=== PATIENT | female | born 1990 | race Two or more races ===

== ENCOUNTER 2025-03-01 18:43 | Emergency (ER) | payer MEDICAID, SELFPAY ==
[2025-03-01 19:14] VITALS: BP 117/75; PULSE 78; RESP 18; TEMP 37.2; O2SAT 99
--- NOTE | 2025-03-01 19:27 | PD.EDRME ---
Rapid Medical Screening Exam RME Arrival date/time: 03/01/25 18:43 34F with no significant PMH presents to ED with several days of L flank pain and possible hematuria, but no dsyuria. There is also N/V. Chief Complaint: Abdominal Pain Vital signs: Vital Signs Temperature 98.9 F 03/01/25 19:14 Pulse Rate 78 03/01/25 19:14 Respiratory Rate 18 03/01/25 19:14 Blood Pressure 117/75 03/01/25 19:14 Pulse Oximetry (%) 99 03/01/25 19:14 Oxygen Delivery Method Room Air 03/01/25 19:14
[2025-03-01 19:47] LABS: Basophils # (Auto) 0.1 Thou/mm3 (0.0-0.2); Basophils % (Auto) 1 % (0-2.5); Eosinophils # (Auto) 0.1 Thou/mm3 (0.0-0.5); Eosinophils % (Auto) 1 % (0-10); Hematocrit 37.2 % (36.0-46.0); Hemoglobin 12.9 g/dL (12.0-16.0); Immature Granulocytes % (Auto) 0 % (0-0); Immature Granulocytes Auto 0.02 Thou/mm3 (0.00-0.00); Lymphocytes # (Auto) 2.4 Thou/mm3 (1.0-4.8); Lymphocytes % (Auto) 29 % (10-50); Mean Corpuscular HGB Conc 34.7 g/dl (31.0-37.0); Mean Corpuscular Hemoglobin 30.1 pg (25.0-35.0); Mean Corpuscular Volume 87 fL (80-100); Monocytes # (Auto) 0.7 Thou/mm3 (0.0-0.8); Monocytes % (Auto) 9 % (0-12); Neutrophils # (Auto) 4.9 Thou/mm3 (1.8-7.7); Neutrophils % (Auto) 60 % (37-80); Nucleated Red Blood Cell % 0 /100 WBC (0); Platelet Count 290 Thou/mm3 (140-440); RDW Standard Deviation 40.1 fL (36.4-46.3); Red Blood Count 4.28 Miln/mm3 (4.00-5.20); White Blood Count 8.1 Thou/mm3 (3.6-11.0)
[2025-03-01] MEDS: NAPROXEN 250 MG TABLET 500 MG PO (19:59)
[2025-03-01] MEDS: ONDANSETRON ODT 4 MG TABRAP PO (20:00)
[2025-03-01 20:05] LABS: Alanine Aminotransferase 19 U/L (10-49); Albumin, Serum 4.5 gm/dL (3.5-5.0); Albumin/Globulin Ratio 1.4 (1.2-2.2); Alkaline Phosphatase 69 U/L (46-116); Anion Gap 9 (7-16); Aspartate Amino Transferase 21 U/L (0-34); BUN/Creatinine Ratio 9 Ratio (12-20); Bilirubin,Total 0.3 mg/dL (0.3-1.2); Blood Urea Nitrogen 7 mg/dL (9-23); Calcium 9.2 mg/dL (8.3-10.6); Calcium (Corrected) 9.2 mg/dL (8.5-10.1); Carbon Dioxide 26.6 mMol/L (20.0-31.0); Chloride 104 mMol/L (98-107); Creatinine (Component) 0.8 mg/dL (0.6-1.3); Globulin 3.2 gm/dL (2.3-3.5); Glucose 93 mg/dL (74-106); Lipase 52 U/L (12-53); Osmolality,Calculated 277 (275-295); Potassium 3.2 mMol/L (3.4-5.1); Sodium 140 mMol/L (136-145); Total Protein 7.7 gm/dL (5.7-8.2); eGFR > 60 See Note
[2025-03-01 20:56] LABS: Collection Type, Urine Clean Catch
[2025-03-01 21:06] LABS: Bilirubin,Urine Negative (Negative); Blood,Urine Negative (Negative); Clarity,Urine Clear (Clear/Hazy); Color,Urine Colorless (Lt Yel-Yel); Culture Indicated,Urine Not Indicated; Glucose, Urine Negative (Negative); Ketones,Urine Negative (Negative); Leukocyte Esterase,Urine Negative (Negative); Nitrite,Urine Negative (Negative); PH,Urine 6.5 (5.0-7.0); Protein,Urine Negative (Neg - Trace); RBC,Urine 1 /hpf (0-3); Specific Gravity,Urine 1.003 (1.001-1.035); Squamous Epithelial Cell,Urine 1 /hpf (0-5); Urobilinogen,Urine Negative mg/dL (0.0-1.0); WBC,Urine 1 /hpf (0-5)
[2025-03-01 21:11] LABS: HCG Qualitative,Urine Negative
--- NOTE | 2025-03-01 23:48 | PC.NURSE ---
CALLED PATIENT IN THE LOBBY AND OUTSIDE, NO ANSWER RECEIVED.
--- NOTE | 2025-03-02 00:11 | PC.NURSE ---
Pt did not answer when name was called and was not found outside.
== END 2025-03-02 00:59 | disposition left against medical advice (07) ==
PROVIDERS: Physician Assistant; Emergency Provider Emergency Medicine
DX: R10.9 Unspecified abdominal pain (principal); Z53.29 Procedure and treatment not carried out because of patient's decision for other reasons
CPT/HCPCS: 36415; 80053; 81001; 81025; 83690; 85025; 99281; Q0162; A9270

== ENCOUNTER 2025-03-25 13:17 | Emergency (ER) | payer MEDICAID, SELFPAY ==
[2025-03-25 13:25] VITALS: BP 116/70; PULSE 68; RESP 17; TEMP 37.2; O2SAT 100
--- NOTE | 2025-03-25 13:28 | PD.EDVAGBL ---
ED OB Contraction Preg RMI/HPI General Chief complaint: Vaginal Bleeding Stated complaint: PREG 5WKS, VAGINAL BLEEDING, SENT BY PCP Time Seen by Provider: 03/25/25 13:26 Source: patient Arrival date/time: 03/25/25 13:17 35-year-old female with no known medical history presents to the emergency room with a chief complaint of vaginal bleeding x 2 days. Patient is currently 5 weeks . She is a G4, P2 and was sent over by her primary care provider. Mode of arrival: ambulatory Limitations: no limitations Related Data Home Medications ?Medication ?Instructions ?Recorded ?Confirmed norgestimate 0.25 mg-ethinyl 1 tab PO QDAY 04/24/24 04/24/24 estradiol 0.035 mg tablet Previous Rx's ?Medication ?Instructions ?Recorded acetaminophen 500 mg capsule 500 mg PO Q6H PRN fever or pain 04/25/24 #20 caps ibuprofen 800 mg tablet 800 mg PO Q8H PRN pain #20 tabs 04/25/24 metronidazole 500 mg tablet 500 mg PO Q12H #14 tabs 04/25/24 Allergies Allergy/AdvReac Type Severity Reaction Status Date / Time No Known Allergies Allergy Verified 03/25/25 13:19 Review of Systems Review of Systems Systems Reviewed: All systems reviewed, normal except as documented Constitutional Constitutional: Reports system reviewed and no additional complaints, except as documented, Denies fatigue, Denies fever(s), Denies headache(s) and Denies weakness Eyes Eyes: Reports system reviewed and no additional complaints, except as documented, Denies blurry vision and Denies change in vision ENT Ears, Nose, Mouth, and Throat: Reports system reviewed and no additional complaints, except as documented, Denies otalgia, Denies headache(s), Denies nasal congestion, Denies throat swelling and Denies vertigo Cardiovascular Cardiovascular: Reports system reviewed and no additional complaints, except as documented, Denies chest pain, Denies dyspnea and Denies dyspnea on exertion Respiratory Respiratory: Reports system reviewed and no additional complaints, except as documented, Denies chest congestion, Denies cough, Denies dyspnea, Denies dyspnea on exertion and Denies wheezing Gastrointestinal Gastrointestinal: Reports system reviewed and no additional complaints, except as documented, Denies abdominal pain, Denies cramping, Denies nausea and Denies vomiting Genitourinary Genitourinary: Reports system reviewed and no additional complaints, except as documented, Reports abnormal vaginal bleeding and Reports pelvic pain Musculoskeletal Musculoskeletal: Reports system reviewed and no additional complaints, except as documented and Denies back pain Integumentary/Breasts Skin/Breast: Reports system reviewed and no additional complaints, except as documented and Denies wounds Neurologic Neurologic: Reports system reviewed and no additional complaints, except as documented, Denies confusion, Denies headache(s), Denies lack of coordination, Denies vertigo and Denies weakness Psychiatric Psychiatric: Reports system reviewed and no additional complaints, except as documented, Denies anxiety, Denies confusion, Denies depression, Denies paranoia, Denies suicidal ideation and Denies tactile hallucinations Endocrine Endocrine: Reports system reviewed and no additional complaints, except as documented and Denies fatigue Hematologic/Lymphatic Hematologic/Lymphatic: Reports system reviewed and no additional complaints, except as documented and Denies lymphadenopathy Allergic/Immunologic Allergic/Immunologic: Reports system reviewed and no additional complaints, except as documented, Denies throat swelling, Denies urticaria and Denies wheezing Past Medical History Past Medical History NEUROLOGIC: Negative Neurological Disorders or Seizures CARDIAC: Negative Cardiac Disorders or Congestive Heart Failure RESPIRATORY: Negative Chronic Obstructive Pulmonary Disease (COPD) or Asthma GASTROINTESTINAL: Negative Gastrointestinal Disorders or Hepatitis GENITOURINARY: Negative Genitourinary Disorders or Renal Disease REPRODUCTIVE: Positive Previous Pregnancies (2) MUSCULOSKELETAL: Negative Musculoskeletal Disorders ENDOCRINE: Negative Endocrine Disorders, Diabetes Mellitus Type 1 or Diabetes Mellitus Type 2 HEMATOLOGIC: Positive Blood Disorders and Anemia; Negative Sickle Cell Disease PSYCHO/SOCIAL: Positive Anxiety (no meds) OTHER HISTORY: Negative Hospitalization, Autoimmune Disease, Shingles, Blood Transfusions, Blood Transfusion Reaction, Anesthesia Reactions or Cancer Family History FAMILY HISTORY: Positive Family Cardiac Disorders, Family Cancer (Prostate) and Family Surgery; Negative Family Psychiatric Problems, Family Respiratory Disorders, Family Gastrointestinal Problems or Family Anesthesia Reaction Social History SMOKING STATUS: Never smoker SUBSTANCE USE: does not use ED Exam General Limitations: Present no limitations General appearance: Present alert and in no apparent distress Head Head exam: Present atraumatic Eye Eye exam: Present normal appearance, PERRL and EOMI ENT ENT exam: Present normal exam, normal oropharynx and mucous membranes moist Neck Neck exam: Present normal inspection, full ROM and trachea midline Chest Chest inspection: Present normal inspection and symmetric chest wall rise Respiratory Respiratory exam: Present normal lung sounds bilaterally Cardiovascular Cardiovascular exam: Present regular rate, normal rhythm and normal heart sounds Abdominal Exam Abdominal exam: Present soft, tenderness and normal bowel sounds Abdominal tenderness: Present suprapubic and mild Extremities Exam Extremities exam: Present normal inspection and full ROM Back Exam Back exam: Present normal inspection and full ROM Neurological Exam Neurological exam: Present alert, oriented X3 and CN II-XII intact Psychiatric Psychiatric exam: Present normal affect and normal mood Skin Skin exam: Present warm, dry, intact and normal color Course Quality Measures none Orders Category Date Time Status US OB <= 14 weeks fetus Stat Exams 03/25/25 13:31 Completed ABO/RH Type Stat Lab 03/25/25 13:35 Completed Beta HCG,Quantitative Stat Lab 03/25/25 13:35 Completed CBC Stat Lab 03/25/25 13:35 Completed CMP [Comprehensive Metabolic Panel] Stat Lab 03/25/25 13:35 Completed UA [Urinalysis] Stat Lab 03/25/25 13:45 Completed Vital Signs Vital signs: Vital Signs Temperature 98.9 F 03/25/25 13:25 Pulse Rate 68 03/25/25 13:25 Respiratory Rate 17 03/25/25 13:25 Blood Pressure 116/70 03/25/25 13:25 Pulse Oximetry (%) 100 03/25/25 13:25 Oxygen Delivery Method Room Air 03/25/25 13:25 O2 saturation 100% within normal limits Vaginal Bleeding MDM Narrative MDM Narrative: 35-year-old female with no known medical history presents to the emergency room with a chief complaint of vaginal bleeding x 2 days. Patient is currently 5 weeks . She is a G4, P2 and was sent over by her primary care provider. Patient is currently hemodynamically stable Physical examination does not show any tenderness to her abdomen with palpation. The patient is having some vaginal bleeding and states it is a little more than just spotting. Ultrasound was completed and at this time no intrauterine gestation or uterine mass was found. The patient's hCG levels are at 4. I spoke to the patient and told her this is significantly low. I spoke to the patient that she can return in 3 days if she is unable to see her FINAL TESTER for repeat blood work and ultrasound. Patient was discharged and educated to follow-up with primary care provider in the next 24 to 48 hours and return to the emergency room for any evidence of worsening signs or symptoms Patient data External records reviewed:: [facility] previous records Clinical information provided by:: patient Social determinants that could affect healthcare access:: none Patient has the following chronic illnesses:: No chronic illness How is presenting disease/condition affected by chronic disease/condition?: no chronic disease Evaluation data The following diagnostics were reviewed and interpreted by me:: lab results and radiology exam(s) Lab and/or radiology exams considered but not ordered:: Labs and radiology exams considered and ordered Interpretation Summary: OB ultrasound-Findings: Uterus 8.9 cm endometrial stripe 0.8 cm No uterine mass or intrauterine gestation Right ovary 1.6 cm arterial flow Left ovary 4.0 cm arterial flow IMPRESSION: No uterine mass or intrauterine gestation Medications / Prescriptions Medications or Prescriptions considered but not ordered:: No medication Medication administrations:: No medication given Consultations Consultation(s) initiated? (list below): No Diagnosis Vaginal Bleeding Differential Diagnosis: threatened , dysfunctional uterine bleeding, incomplete , ectopic without intrauterine and vaginal bleeding Most likely diagnosis given after review of the tests above:: Vaginal bleeding Admission Indicated Admission indicated?: not indicated Admission Request Was there a request for admission?: No Disposition Plan Disposition Plan: Discharge Discharge Attestation Discharge Attestation: The patient and all family members were given an opportunity to ask questions and understood the discharge instructions. Discharge instructions specifically effects, indications for sooner follow up or return to the emergency department, and the expected course of current diagnosis. Patient condition: Stable Discharge Plan Plan Patient Disposition: HOME (Self Care) Discharge Disposition comment: Stable Prescriptions/Referrals Prescriptions/Med Rec: No Action norgestimate-ethinyl estradiol 0.25-35 mg-mcg Tablet 1 tab PO QDAY acetaminophen 500 mg capsule 500 mg PO Q6H PRN (Reason: fever or pain) Qty: 20 0RF ibuprofen 800 mg tablet 800 mg PO Q8H PRN (Reason: pain) Qty: 20 0RF metronidazole 500 mg tablet 500 mg PO Q12H Qty: 14 0RF Referrals: Cristopher Emanuel MD [Primary Care Provider] - In 1 week Problem List Clinical Impression: Vaginal bleeding Patient/Caregiver Discharge Instructions Education Materials: ED Dysfunctional Uterine Bleeding Additional Instructions: Please follow-up with your FINAL TESTER in the next 24 to 48 hours Ultrasound was completed and at this time an intrauterine gestation was unable to be visualized. Your hCG levels are also at 4. This level was very low and can mean you are having a spontaneous . You can return in 3 days for repeat ultrasound and blood work in which we will compare these results. For any evidence of worsening signs or symptoms return to the emergency room immediately Print Language: Bolivian Stand Alone Forms: Maryse Award Info., Patient Portal Info Letter PA/CREW LEADER/CONTROL ROOM OPERATOR Supervising Physician PA/CREW LEADER/CONTROL ROOM OPERATOR Supervising Physician: Dr. Salvador
--- NOTE | 2025-03-25 13:31 | XR_ITS ---
Examination: Complete OB ultrasound, less than 14 weeks, transabdominal Date and time of exam: March 25, 2025 1424 hours INDICATIONS: Onset vaginal bleeding today Technique: Obstetrical ultrasound images less than 14 weeks performed via transabdominal imaging Findings: Uterus 8.9 cm endometrial stripe 0.8 cm No uterine mass or intrauterine gestation Right ovary 1.6 cm arterial flow Left ovary 4.0 cm arterial flow IMPRESSION: No uterine mass or intrauterine gestation
[2025-03-25 13:47] LABS: Basophils # (Auto) 0.0 Thou/mm3 (0.0-0.2); Basophils % (Auto) 1 % (0-2.5); Eosinophils # (Auto) 0.1 Thou/mm3 (0.0-0.5); Eosinophils % (Auto) 1 % (0-10); Hematocrit 37.1 % (36.0-46.0); Hemoglobin 12.7 g/dL (12.0-16.0); Immature Granulocytes Auto 0.02 Thou/mm3 (0.00-0.00); Lymphocytes # (Auto) 2.2 Thou/mm3 (1.0-4.8); Lymphocytes % (Auto) 24 % (10-50); Mean Corpuscular HGB Conc 34.2 g/dl (31.0-37.0); Mean Corpuscular Hemoglobin 30.2 pg (25.0-35.0); Mean Corpuscular Volume 88 fL (80-100); Monocytes # (Auto) 0.6 Thou/mm3 (0.0-0.8); Monocytes % (Auto) 7 % (0-12); Neutrophils # (Auto) 6.0 Thou/mm3 (1.8-7.7); Neutrophils % (Auto) 67 % (37-80); Nucleated Red Blood Cell # 0.00 Thou/mm3 (0.00-0.00); Nucleated Red Blood Cell % 0 /100 WBC (0); Platelet Count 300 Thou/mm3 (140-440); RDW Standard Deviation 41.4 fL (36.4-46.3); Red Blood Count 4.20 Miln/mm3 (4.00-5.20); White Blood Count 8.9 Thou/mm3 (3.6-11.0)
[2025-03-25 14:02] LABS: Collection Type, Urine Clean Catch
[2025-03-25 14:10] LABS: Alanine Aminotransferase 17 U/L (10-49); Albumin, Serum 4.2 gm/dL (3.5-5.0); Albumin/Globulin Ratio 1.4 (1.2-2.2); Alkaline Phosphatase 67 U/L (46-116); Anion Gap 9 (7-16); Aspartate Amino Transferase 21 U/L (0-34); BUN/Creatinine Ratio 10 Ratio (12-20); Beta HCG,Quantitative 4 mIU/mL (<5.0); Bilirubin,Total 0.3 mg/dL (0.3-1.2); Blood Urea Nitrogen 9 mg/dL (9-23); Calcium 8.7 mg/dL (8.3-10.6); Calcium (Corrected) 8.7 mg/dL (8.5-10.1); Carbon Dioxide 24.2 mMol/L (20.0-31.0); Chloride 106 mMol/L (98-107); Creatinine (Component) 0.9 mg/dL (0.6-1.3); Globulin 3.1 gm/dL (2.3-3.5); Glucose 115 mg/dL (74-106); Osmolality,Calculated 277 (275-295); Potassium 3.6 mMol/L (3.4-5.1); Sodium 139 mMol/L (136-145); Total Protein 7.3 gm/dL (5.7-8.2); eGFR > 60 See Note
[2025-03-25 14:16] LABS: Bilirubin,Urine Negative (Negative); Blood,Urine 3+ (Negative); Clarity,Urine Clear (Clear/Hazy); Color,Urine Lt-Yellow (Lt Yel-Yel); Glucose, Urine Negative (Negative); Ketones,Urine Negative (Negative); Leukocyte Esterase,Urine Positive (Negative); Nitrite,Urine Negative (Negative); PH,Urine 7.5 (5.0-7.0); Protein,Urine Negative (Neg - Trace); RBC,Urine 6 /hpf (0-3); Specific Gravity,Urine 1.015 (1.001-1.035); Squamous Epithelial Cell,Urine 16 /hpf (0-5); Urobilinogen,Urine Negative mg/dL (0.0-1.0); WBC,Urine 2 /hpf (0-5)
== END 2025-03-25 15:37 | disposition home or self-care (01) ==
PROVIDERS: Emergency Provider Nurse Practitioner Family; PCP Family Medicine
DX: O20.9 Hemorrhage in early pregnancy, unspecified (principal); Z3A.01 Less than 8 weeks gestation of pregnancy
CPT/HCPCS: 36415; 76801; 80053; 81001; 84702; 85025; 86900; 86901; 99283

== ENCOUNTER 2025-05-29 21:09 | Emergency (ER) | payer MEDICAID, SELFPAY ==
[2025-05-29 21:11] VITALS: BMI 23.6
[2025-05-29 21:44] VITALS: BP 125/79; PULSE 69; RESP 18; TEMP 36.9; O2SAT 98
--- NOTE | 2025-05-29 22:11 | PD.EDVAGBL ---
ED OB Contraction Preg RMI/HPI General Chief complaint: Vaginal Bleeding Stated complaint: 5 wks preg vag bleeding and cramping Time Seen by Provider: 05/29/25 22:05 Arrival date/time: 05/29/25 21:09 35-year-old female A2 approximately 5 weeks gestation reports with complaints of vaginal bleeding and pelvic cramping that began today. Patient denies any urinary urgency or frequency fever or chills lower back pain nausea or vomiting or abdominal trauma. Patient states that she has not taken any medications for the bleeding Limitations: no limitations Related Data Home Medications ?Medication ?Instructions ?Recorded ?Confirmed norgestimate 0.25 mg-ethinyl 1 tab PO QDAY 04/24/24 04/24/24 estradiol 0.035 mg tablet Previous Rx's ?Medication ?Instructions ?Recorded acetaminophen 500 mg capsule 500 mg PO Q6H PRN fever or pain 04/25/24 #20 caps ibuprofen 800 mg tablet 800 mg PO Q8H PRN pain #20 tabs 04/25/24 metronidazole 500 mg tablet 500 mg PO Q12H #14 tabs 04/25/24 Allergies Allergy/AdvReac Type Severity Reaction Status Date / Time No Known Allergies Allergy Verified 05/29/25 21:15 Review of Systems Constitutional Constitutional: Denies chills and Denies fever(s) Cardiovascular Cardiovascular: Denies chest pain, Denies dyspnea and Denies syncope Respiratory Respiratory: Denies cough and Denies dyspnea Gastrointestinal Gastrointestinal: Denies nausea and Denies vomiting Genitourinary Genitourinary: Reports abnormal vaginal bleeding and Reports pelvic pain Musculoskeletal Musculoskeletal: Denies back pain and Denies myalgias Integumentary/Breasts Skin/Breast: Denies rash and Denies skin pain Neurologic Neurologic: Denies convulsions and Denies syncope Hematologic/Lymphatic Hematologic/Lymphatic: Denies easy bleeding and Denies easy bruising ED Exam General Limitations: Present no limitations General appearance: Present alert and in no apparent distress Chest Chest inspection: Present normal inspection and symmetric chest wall rise Respiratory Respiratory exam: Present normal lung sounds bilaterally Cardiovascular Cardiovascular exam: Present regular rate, normal rhythm and normal heart sounds Abdominal Exam Abdominal exam: Present soft and normal bowel sounds External exam: Present normal external exam Speculum exam: Present vaginal bleeding; Absent erythema Bimanual exam: Present normal bimanual exam; Absent cervical motion tenderness, adnexal tenderness or uterine enlargement Extremities Exam Extremities exam: Present normal inspection and full ROM Back Exam Back exam: Present normal inspection and full ROM Neurological Exam Neurological exam: Present alert, oriented X3 and CN II-XII intact Psychiatric Psychiatric exam: Present normal affect and normal mood Skin Skin exam: Present warm, dry, intact and normal color Course Course Course Narrative: [facility] [address] [place] [address] [facility] Signed Patient: AGNES FARLEY Record#: [id number] Birthdate: 1990 Age/Sex: 35 / F Location: [facility] Attending Dr: Ordering Physician: Arnoldo Figueredo PA-C Date of Service: 05/29/25 Procedure(s): US OB <= 14 weeks fetus Accession Number(s): [id number] cc: Cristopher Emanuel MD; Moe Luna MD; Arnoldo Figueredo PA-C~ Examination: Complete OB ultrasound, less than 14 weeks, transabdominal Date and time of exam: May 29, 2025 10:17 PM Indications: Vaginal bleeding today Technique: Obstetrical ultrasound images less than 14 weeks performed via transabdominal imaging Findings: Uterus 10.2 cm intrauterine gestational sac 1.2 cm corresponds to 6 week 0 day gestational age No pole No cardiac activity Right ovary 3.0 cm arterial flow Left ovary 3.6 cm arterial flow Impression: Empty intrauterine gestational sac corresponding to 6 weeks 0 day gestational age Recommend transvaginal pelvic sonography follow-up to assess for viability Dictated By: Moe Luna MD Signed By: <Electronically signed by Moe Luna MD in OV> 05/29/252255 DD/ 54 TD/TT: 05/29/252254 Sheet Music Salesperson: ESSENCE Quality Measures none Orders Category Date Time Status Pelvic Exam X1 Care 05/29/25 22:10 Active US OB <= 14 weeks fetus Stat Exams 05/29/25 22:10 Completed Beta HCG,Quantitative Stat Lab 05/29/25 22:24 Completed Chlamydia/GC/TV - PCR Stat Lab 05/29/25 Ordered HCG,Qualitative Serum Stat Lab 05/29/25 22:24 Completed UA, C/S IF [Urinalysis, C/S if Indicated] Stat Lab 05/29/25 23:17 Received Vital Signs Vital signs: Vital Signs Temperature 98.5 F 05/29/25 21:44 Pulse Rate 69 05/29/25 21:44 Respiratory Rate 18 05/29/25 21:44 Blood Pressure 125/79 05/29/25 21:44 Pulse Oximetry (%) 98 05/29/25 21:44 Oxygen Delivery Method Room Air 05/29/25 21:44 Vaginal Bleeding Patient data External records reviewed:: None Clinical information provided by:: patient Social determinants that could affect healthcare access:: none Patient has the following chronic illnesses:: none How is presenting disease/condition affected by chronic disease/condition?: no chronic disease Evaluation data The following diagnostics were reviewed and interpreted by me:: lab results and radiology exam(s) Lab and/or radiology exams considered but not ordered:: none Interpretation Summary: gestational sac measures approximately 6 weeks of gestation but no visual fetus and sac noted Medications / Prescriptions Medications or Prescriptions considered but not ordered:: None Medication administrations:: None Consultations Consultation(s) initiated? (list below): No Diagnosis Vaginal Bleeding Differential Diagnosis: missed , threatened , dysfunctional uterine bleeding and vaginal bleeding Most likely diagnosis given after review of the tests above:: Threatened Admission Indicated Admission indicated?: not indicated Admission Request Was there a request for admission?: No Disposition Plan Disposition Plan: Discharge Discharge Attestation Discharge Attestation: The patient and all family members were given an opportunity to ask questions and understood the discharge instructions. Discharge instructions specifically effects, indications for sooner follow up or return to the emergency department, and the expected course of current diagnosis. Patient condition: Stable Discharge Plan Plan Patient Disposition: HOME (Self Care) Prescriptions/Referrals Prescriptions/Med Rec: No Action norgestimate-ethinyl estradiol 0.25-35 mg-mcg Tablet 1 tab PO QDAY acetaminophen 500 mg capsule 500 mg PO Q6H PRN (Reason: fever or pain) Qty: 20 0RF ibuprofen 800 mg tablet 800 mg PO Q8H PRN (Reason: pain) Qty: 20 0RF metronidazole 500 mg tablet 500 mg PO Q12H Qty: 14 0RF Referrals: Cristopher Emanuel MD [Primary Care Provider, Family Practice] - In 1 week Problem List Clinical Impression: , spontaneous threatened Patient/Caregiver Discharge Instructions Discharge Activity: activity as tolerated Education Materials: ED Possible Miscarriage ... Additional Instructions: Follow-up with your BARREL STRAIGHTENER in 48 hours to have blood labs repeated or you may return to the emergency department to have your blood work repeated get plenty of rest and notify your BARREL STRAIGHTENER in the morning Print Language: Welsh Stand Alone Forms: Maryse Award Info., Patient Portal Info Letter
[2025-05-29 23:18] LABS: HCG,Qualitative Serum Positive
[2025-05-30 00:13] LABS: Beta HCG,Quantitative 33441 mIU/mL (<5.0)
[2025-05-30 00:19] LABS: Collection Type, Urine Clean Catch
[2025-05-30 00:31] LABS: Bacteria,Urine Rare; Bilirubin,Urine Negative (Negative); Blood,Urine 3+ (Negative); Clarity,Urine Clear (Clear/Hazy); Color,Urine Colorless (Lt Yel-Yel); Culture Indicated,Urine Not Indicated; Glucose, Urine Negative (Negative); Ketones,Urine Negative (Negative); Leukocyte Esterase,Urine Negative (Negative); Nitrite,Urine Negative (Negative); PH,Urine 6.5 (5.0-7.0); Protein,Urine Negative (Neg - Trace); RBC,Urine < 1 /hpf (0-3); Specific Gravity,Urine 1.004 (1.001-1.035); Squamous Epithelial Cell,Urine 1 /hpf (0-5); Urobilinogen,Urine Negative mg/dL (0.0-1.0); WBC,Urine < 1 /hpf (0-5)
[2025-05-30 11:30] LABS: Chlamydia trachomatis PCR Negative (Not Detect); Neisseria Gonorrhoeae DNA PCR Negative (Not Detect); Trichomonas Negative (Negative)
== END 2025-05-30 00:37 | disposition home or self-care (01) ==
PROVIDERS: Physician Assistant; Emergency Provider Emergency Medicine; PCP Family Medicine
DX: O20.0 Threatened abortion (principal); Z3A.01 Less than 8 weeks gestation of pregnancy
CPT/HCPCS: 36415; 76801; 81001; 84702; 84703; 87491; 87591; 87661; 99283

== ENCOUNTER 2025-06-19 14:46 | Emergency (ER) | payer MEDICAID, SELFPAY ==
[2025-06-19 15:10] VITALS: BP 115/80; PULSE 61; RESP 18; TEMP 36.8; O2SAT 99
--- NOTE | 2025-06-19 15:16 | XR_ITS ---
EXAMINATION: Transvaginal pelvic sonography TECHNIQUE: Grayscale transvaginal sonographic images pelvis Date and time: June 19, 2025, 1542 hours INDICATIONS: Vaginal bleeding and pelvic cramping today FINDINGS: Uterus 10.0 cm, CRL 1.6 cm corresponds to 8 weeks 0 days gestational age Cardiac motion 178 bpm Right ovary 2.8 cm arterial flow Left ovary 2.6 cm arterial flow IMPRESSION: Viable intrauterine gestation 8 weeks 0 days
--- NOTE | 2025-06-19 15:16 | PD.EDRME ---
Rapid Medical Screening Exam E Arrival date/time: 06/19/25 14:46 35-year-old female presents to the Emergency Department for complaints of vaginal bleeding patient reports being approximately 8 weeks Chief Complaint: Vaginal Bleeding Vital signs: Vital Signs Temperature 98.3 F 06/19/25 15:10 Pulse Rate 61 06/19/25 15:10 Respiratory Rate 18 06/19/25 15:10 Blood Pressure 115/80 06/19/25 15:10 Pulse Oximetry (%) 99 06/19/25 15:10 Oxygen Delivery Method Room Air 06/19/25 15:10
[2025-06-19 15:51] LABS: Alanine Aminotransferase 19 U/L (10-49); Albumin, Serum 4.6 gm/dL (3.5-5.0); Albumin/Globulin Ratio 1.3 (1.2-2.2); Alkaline Phosphatase 70 U/L (46-116); Anion Gap 12 (7-16); Aspartate Amino Transferase 23 U/L (0-34); BUN/Creatinine Ratio 10 Ratio (12-20); Bilirubin,Total 0.3 mg/dL (0.3-1.2); Blood Urea Nitrogen 6 mg/dL (9-23); Calcium 9.9 mg/dL (8.3-10.6); Calcium (Corrected) 9.9 mg/dL (8.5-10.1); Carbon Dioxide 24.1 mMol/L (20.0-31.0); Chloride 100 mMol/L (98-107); Creatinine (Component) 0.6 mg/dL (0.6-1.3); Globulin 3.6 gm/dL (2.3-3.5); Glucose 89 mg/dL (74-106); Osmolality,Calculated 268 (275-295); Potassium 3.7 mMol/L (3.4-5.1); Sodium 136 mMol/L (136-145); Total Protein 8.2 gm/dL (5.7-8.2); eGFR > 60 See Note
[2025-06-19 17:08] LABS: Basophils # (Auto) 0.1 Thou/mm3 (0.0-0.2); Basophils % (Auto) 1 % (0-2.5); Eosinophils # (Auto) 0.1 Thou/mm3 (0.0-0.5); Eosinophils % (Auto) 1 % (0-10); Hematocrit 37.5 % (36.0-46.0); Hemoglobin 12.7 g/dL (12.0-16.0); Immature Granulocytes Auto 0.07 Thou/mm3 (0.00-0.00); Lymphocytes # (Auto) 2.2 Thou/mm3 (1.0-4.8); Lymphocytes % (Auto) 20 % (10-50); Mean Corpuscular HGB Conc 33.9 g/dl (31.0-37.0); Mean Corpuscular Hemoglobin 30.1 pg (25.0-35.0); Mean Corpuscular Volume 89 fL (80-100); Monocytes # (Auto) 0.6 Thou/mm3 (0.0-0.8); Monocytes % (Auto) 5 % (0-12); Neutrophils # (Auto) 7.8 Thou/mm3 (1.8-7.7); Neutrophils % (Auto) 73 % (37-80); Nucleated Red Blood Cell # 0.00 Thou/mm3 (0.00-0.00); Nucleated Red Blood Cell % 0 /100 WBC (0); Platelet Count 383 Thou/mm3 (140-440); RDW Standard Deviation 42.3 fL (36.4-46.3); Red Blood Count 4.22 Miln/mm3 (4.00-5.20); White Blood Count 10.7 Thou/mm3 (3.6-11.0)
--- NOTE | 2025-06-19 17:37 | EDNOTE_ITS ---
ED OB Contraction Preg RMI/HPI General Chief complaint: Vaginal Bleeding Stated complaint: 2MOS BLEEDING Time Seen by Provider: 06/19/25 15:40 Arrival date/time: 06/19/25 14:46 35-year-old female presents to the Emergency Department for complaints of vaginal bleeding patient reports being approximately 8 weeks Limitations: no limitations RME / HPI RME / HPI Narrative: 06/19/25 14:46 35-year-old female presents to the Emergency Department for complaints of vaginal bleeding patient reports being approximately 8 weeks Related Data Home Medications ?Medication ?Instructions ?Recorded ?Confirmed norgestimate 0.25 mg-ethinyl 1 tab PO QDAY 04/24/24 estradiol 0.035 mg tablet Previous Rx's ?Medication ?Instructions ?Recorded acetaminophen 500 mg capsule 500 mg PO Q6H PRN fever o r pain 04/25/24 #20 caps ibuprofen 800 mg tablet 800 mg PO Q8H PRN pain #20 t abs 04/25/24 metronidazole 500 mg tablet 500 mg PO Q12H #14 tabs Allergies Allergy/AdvReac Type Severity Reaction Status Date / Time No Known Allergies Allergy Verified 06/19/25 14:49 Review of Systems Review of Systems Systems Reviewed: All systems reviewed, normal except as documented Constitutional Constitutional: Reports system reviewed and no additional complaints, except as documented, Denies fever(s) and Denies headache(s) Eyes Eyes: Reports system reviewed and no additional complaints, except as documented and Denies blurry vision ENT Ears, Nose, Mouth, and Throat: Reports system reviewed and no additional complaints, except as documented, Denies headache(s), Denies nasal congestion and Denies nasal discharge Cardiovascular Cardiovascular: Reports system reviewed and no additional complaints, except as documented, Denies chest pain and Denies dyspnea Respiratory Respiratory: Reports system reviewed and no additional complaints, except as documented, Denies chest congestion, Denies cough and Denies dyspnea Gastrointestinal Gastrointestinal: Reports system reviewed and no additional complaints, except as documented and Denies abdominal pain Genitourinary Genitourinary: Reports system reviewed and no additional complaints, except as documented and Reports abnormal vaginal bleeding Integumentary/Breasts Skin/Breast: Reports system reviewed and no additional complaints, except as documented and Denies rash Neurologic Neurologic: Reports system reviewed and no additional complaints, except as documented, Reports as per HPI and Denies headache(s) Past Medical History Past Medical History NEUROLOGIC: Negative Neurological Disorders or Seizures CARDIAC: Negative Cardiac Disorders or Congestive Heart Failure RESPIRATORY: Negative Chronic Obstructive Pulmonary Disease (COPD) or Asthma GASTROINTESTINAL: Negative Gastrointestinal Disorders or Hepatitis GENITOURINARY: Negative Genitourinary Disorders or Renal Disease REPRODUCTIVE: Positive Previous Pregnancies (2) MUSCULOSKELETAL: Negative Musculoskeletal Disorders ENDOCRINE: Negative Endocrine Disorders, Diabetes Mellitus Type 1 or Diabetes Mellitus Type 2 HEMATOLOGIC: Positive Blood Disorders and Anemia; Negative Sickle Cell Disease PSYCHO/SOCIAL: Positive Anxiety (no meds) OTHER HISTORY: Negative Hospitalization, Autoimmune Disease, Shingles, Blood Transfusions, Blood Transfusion Reaction, Anesthesia Reactions or Cancer Family History FAMILY HISTORY: Positive Family Cardiac Disorders, Family Cancer (Prostate) and Family Surgery; Negative Family Psychiatric Problems, Family Respiratory Disorders, Family Gastrointestinal Problems or Family Anesthesia Reaction Social History SMOKING STATUS: Never smoker SUBSTANCE USE: does not use ED Exam General Limitations: Present no limitations General appearance: Present alert and in no apparent distress Head Head exam: Present atraumatic Eye Eye exam: Present normal appearance, PERRL and EOMI ENT ENT exam: Present normal exam, normal oropharynx and mucous membranes moist Neck Neck exam: Present normal inspection, full ROM and trachea midline Chest Chest inspection: Present normal inspection and symmetric chest wall rise Respiratory Respiratory exam: Present normal lung sounds bilaterally; Absent respiratory distress Cardiovascular Cardiovascular exam: Present regular rate, normal rhythm and normal heart sounds Abdominal Exam Abdominal exam: Present soft and normal bowel sounds Extremities Exam Extremities exam: Present normal inspection and full ROM; Absent tenderness Back Exam Back exam: Present normal inspection and full ROM Neurological Exam Neurological exam: Present alert, oriented X3 and CN II-XII intact Psychiatric Psychiatric exam: Present normal affect and normal mood Skin Skin exam: Present warm, dry, intact and normal color Course Quality Measures none Orders Category Date Time Status US OB transvaginal Stat Exams 06/19/25 15:16 Completed ABO/RH Type Stat Lab 06/19/25 15:21 Completed Beta HCG,Quantitative Stat Lab 06/19/25 15:21 Completed CBC Stat Lab 06/19/25 15:21 Completed Comprehensive Metabolic Panel Stat Lab 06/19/25 15:21 Completed Vital Signs Vital signs: Vital Signs Temperature 98.3 F 06/19/25 15:10 Pulse Rate 61 06/19/25 15:10 Respiratory Rate 18 06/19/25 15:10 Blood Pressure 115/80 06/19/25 15:10 Pulse Oximetry (%) 99 06/19/25 15:10 Oxygen Delivery Method Room Air 06/19/25 15:10 To saturation 99% room air within normal limits Vaginal Bleeding MDM Narrative MDM Narrative: 35-year-old female presents to the Emergency Department for complaints of vaginal bleeding patient reports being approximately 8 weeks On exam patient well-appearing patient does not appear look toxic distress Lab work and imaging obtained lab work and imaging consistent with viable at this time I did explain to the patient I cannot determine while having the future but at this time patient appears to have viable For increased bleeding or emergent concerns patient is instructed return for reevaluation Patient data External records reviewed:: [facility] previous records Clinical information provided by:: patient Social determinants that could affect healthcare access:: none Patient has the following chronic illnesses:: None How is presenting disease/condition affected by chronic disease/condition?: no chronic disease Evaluation data The following diagnostics were reviewed and interpreted by me:: lab results and radiology exam(s) Lab and/or radiology exams considered but not ordered:: Labs radiology obtained Interpretation Summary: Reviewed by me Medications / Prescriptions Medications or Prescriptions considered but not ordered:: No meds Medication administrations:: No meds Consultations Consultation(s) initiated? (list below): No Diagnosis Vaginal Bleeding Differential Diagnosis: missed and threatened Most likely diagnosis given after review of the tests above:: Threatened Admission Indicated Admission indicated?: not indicated Admission Request Was there a request for admission?: No Disposition Plan Disposition Plan: Discharge Discharge Attestation Discharge Attestation: The patient and all family members were given an opportunity to ask questions and understood the discharge instructions. Discharge instructions specifically effects, indications for sooner follow up or return to the emergency department, and the expected course of current diagnosis. Patient condition: Stable Discharge Plan Plan Patient Disposition: HOME (Self Care) Discharge Disposition comment: Stable Prescriptions/Referrals Prescriptions/Med Rec: No Action norgestimate-ethinyl estradiol 0.25-35 mg-mcg Tablet 1 tab PO QDAY acetaminophen 500 mg capsule 500 mg PO Q6H PRN (Reason: fever or pain) Qty: 20 0RF ibuprofen 800 mg tablet 800 mg PO Q8H PRN (Reason: pain) Qty: 20 0RF metronidazole 500 mg tablet 500 mg PO Q12H Qty: 14 0RF Referrals: Cristopher Emanuel MD [Primary Care Provider, [facility]] - 06/20/25 Problem List Clinical Impression: Vaginal bleeding during Patient/Caregiver Discharge Instructions Education Materials: Bleeding During Early Additional Instructions: Please follow up with your primary care doctor in the next 24-48hrs for any worsening symptoms return here immediately Print Language: Georgian Stand Alone Forms: Maryse Award Info., Work/School Release, Patient Portal Info Letter PA/ELECTRICAL MAINTENANCE TECHNICIAN Supervising Physician PA/ELECTRICAL MAINTENANCE TECHNICIAN Supervising Physician: dr rojas
== END 2025-06-19 17:57 | disposition home or self-care (01) ==
PROVIDERS: Nurse Practitioner Primary Care; Emergency Provider Emergency Medicine; PCP Family Medicine
DX: O20.0 Threatened abortion (principal); Z3A.08 8 weeks gestation of pregnancy
CPT/HCPCS: 36415; 76817; 80053; 84702; 85025; 86900; 86901; 99283

== ENCOUNTER 2025-08-03 18:56 | Emergency (ER) | payer MEDICAID, SELFPAY ==
[2025-08-03 18:57] VITALS: BMI 23.8
[2025-08-03 19:04] VITALS: BP 126/84; PULSE 92; RESP 18; TEMP 36.8; O2SAT 99
--- NOTE | 2025-08-03 19:15 | EDNOTE_ITS ---
ED OB Contraction Preg RMI/HPI General Chief complaint: Vaginal Bleeding Stated complaint: 14 WK PREG/VAG BLEED Time Seen by Provider: 08/03/25 19:01 Arrival date/time: 08/03/25 18:56 35-year-old female patient came in for evaluation regarding vaginal bleeding. According to the patient's been having vaginal bleeding for 1 week was seen by [facility] and was started on antibiotics the bleeding stopped last Tuesday only to come back the next day today patient is worried because she is passing blood clots denies any pelvic pain denies any dizziness denies any fever denies any other complaints. Patient is 5 para 2 2 about 14 weeks Related Data Home Medications ?Medication ?Instructions ?Recorded ?Confirmed norgestimate 0.25 mg-ethinyl 1 tab PO QDAY 04/24/24 estradiol 0.035 mg tablet Previous Rx's ?Medication ?Instructions ?Recorded acetaminophen 500 mg capsule 500 mg PO Q6H PRN fever o r pain 04/25/24 #20 caps ibuprofen 800 mg tablet 800 mg PO Q8H PRN pain #20 t abs 04/25/24 metronidazole 500 mg tablet 500 mg PO Q12H #14 tabs Allergies Allergy/AdvReac Type Severity Reaction Status Date / Time No Known Allergies Allergy Verified 06/19/25 14:49 Review of Systems Review of Systems Narrative Review of Systems: Review of system reviewed and within normal limits except mentioned in HPI ED Exam Narrative Physical exam: VITAL SIGNS: Reviewed. GENERAL APPEARANCE: Alert and interactive, follows commands, no acute distress, HEAD AND FACE: Non-traumatic. ENT: PERRL, pink conjunctivitis, eyelid no trauma, Mucous membrane moist. NECK: Supple, nontender, no nuchal rigidity. CHEST: No tenderness, no crepitus, no paradoxical movement, no retractions. LUNGS: Clear, well ventilated, symmetric, no rales, no wheezing, no ronchi, no stridor, good breath sounds bilaterally. HEART: Regular rate, regular rhythm, no murmur, no gallops. ABDOMEN: Soft, positive bowel sounds, nondistended, no guarding, nontender, no rebound, no masses, RECTAL: Deferred. GENITAL: Deferred. NEUROLOGICAL: Gross motor function intact sensory function intact, Appropriate for age. MUSCULOSKELETAL: low back nontender, full range of motion. EXTREMITIES: Nontender, full range of motion. SKIN: Color pink, dry, no rash, no lacerations, no abrasions, no contusions. LYMPHATICS: Deferred. Course Quality Measures none Orders Category Date Time Status US OB <= 14 weeks fetus Stat Exams 08/03/25 19:15 Completed ABO/RH Type Stat Lab 08/03/25 19:30 Completed Basic Metabolic Panel Stat Lab 08/03/25 19:30 Completed Beta HCG,Quantitative Stat Lab 08/03/25 19:30 Completed CBC Stat Lab 08/03/25 19:30 Completed Urinalysis Stat Lab 08/03/25 20:16 Completed Vital Signs Vital signs: Vital Signs Temperature 98.3 F 08/03/25 19:04 Pulse Rate 92 08/03/25 19:04 Respiratory Rate 18 08/03/25 19:04 Blood Pressure 126/84 08/03/25 19:04 Pulse Oximetry (%) 99 08/03/25 19:04 Oxygen Delivery Method Room Air 08/03/25 19:04 Vaginal Bleeding MDM Narrative MDM Narrative: 08/03/25 18:56 35-year-old female patient came in for evaluation regarding vaginal bleeding. According to the patient's been having vaginal bleeding for 1 week was seen by [facility] and was started on antibiotics the bleeding stopped last Tuesday only to come back the next day today patient is worried because she is passing blood clots denies any pelvic pain denies any dizziness denies any fever denies any other complaints. Patient is 5 para 2 2 about 14 weeks Patient's workup today all came back unremarkable including urinalysis which is probably contaminated. Ultrasound g of showed single live intrauterine gestation about 13 weeks old. No abnormality noted results discussed with the patient. I gave her the results of her ultrasound. She is stable for discharge home Patient data External records reviewed:: None Clinical information provided by:: patient Social determinants that could affect healthcare access:: none Patient has the following chronic illnesses:: None How is presenting disease/condition affected by chronic disease/condition?: exacerbated by Evaluation data The following diagnostics were reviewed and interpreted by me:: lab results and radiology exam(s) Lab and/or radiology exams considered but not ordered:: None Interpretation Summary: None Medications / Prescriptions Medications or Prescriptions considered but not ordered:: None Medication administrations:: None Consultations Consultation(s) initiated? (list below): No Diagnosis Vaginal Bleeding Differential Diagnosis: threatened and vaginal bleeding Most likely diagnosis given after review of the tests above:: Vaginal bleeding, Admission Indicated Admission indicated?: not indicated Admission Request Was there a request for admission?: No Disposition Plan Disposition Plan: Discharge Discharge Attestation Discharge Attestation: The patient and all family members were given an opportunity to ask questions and understood the discharge instructions. Discharge instructions specifically effects, indications for sooner follow up or return to the emergency department, and the expected course of current diagnosis. Patient condition: Stable Discharge Plan Plan Patient Disposition: HOME (Self Care) Discharge Disposition comment: Stable Prescriptions/Referrals Prescriptions/Med Rec: No Action norgestimate-ethinyl estradiol 0.25-35 mg-mcg Tablet 1 tab PO QDAY acetaminophen 500 mg capsule 500 mg PO Q6H PRN (Reason: fever or pain) Qty: 20 0RF ibuprofen 800 mg tablet 800 mg PO Q8H PRN (Reason: pain) Qty: 20 0RF metronidazole 500 mg tablet 500 mg PO Q12H Qty: 14 0RF Referrals: Cristopher Emanuel MD [Primary Care Provider, Family Practice] - In 1 week Problem List Clinical Impression: Vaginal bleeding, Patient/Caregiver Discharge Instructions Discharge Activity: activity as tolerated Education Materials: Understanding Uterine Bleeding Additional Instructions: Thank you for the opportunity for serving you today. You are stable for discharged . You are advised to: Follow-up with your [facility] in 1 to 2 days Return to ED for worsening of symptoms Increase oral fluids Pelvic rest no sex for 1 week or until cleared by [facility] Print Language: Citizen Of [place] Stand Alone Forms: Maryse Award Info., Patient Portal Info Letter REILLY/JULIANO Supervising Physician OSCAR Supervising Physician: Dr Sosa
--- NOTE | 2025-08-03 19:15 | XR_ITS ---
Examination: Complete OB ultrasound, less than 14 weeks, transabdominal Date and time of exam: August 03, 2025, 1938 hours INDICATIONS: Vaginal bleeding beginning 1 week ago. Technique: Obstetrical ultrasound images less than 14 weeks performed via transabdominal imaging Findings: A normal shaped single intrauterine gestation is present in the uterus. CRL 6.9 cm corresponds to 13 weeks 1 day gestational age Cardiac motion 153 bpm Ultrasonographic survey of visible and placental structures unremarkable. Amniotic fluid volume appears appropriate for this estimated gestational age. Right ovary 2.8 x 2.9 cm arterial flow Left ovary 3.2 x 2.6 cm arterial flow IMPRESSION: Viable intrauterine gestation 13 weeks 1 day.
[2025-08-03 19:53] LABS: Basophils # (Auto) 0.0 Thou/mm3 (0.0-0.2); Basophils % (Auto) 0 % (0-2.5); Eosinophils # (Auto) 0.2 Thou/mm3 (0.0-0.5); Eosinophils % (Auto) 2 % (0-10); Hematocrit 35.1 % (36.0-46.0); Hemoglobin 12.1 g/dL (12.0-16.0); Immature Granulocytes Auto 0.04 Thou/mm3 (0.00-0.00); Lymphocytes # (Auto) 2.3 Thou/mm3 (1.0-4.8); Lymphocytes % (Auto) 23 % (10-50); Mean Corpuscular HGB Conc 34.5 g/dl (31.0-37.0); Mean Corpuscular Hemoglobin 31.1 pg (25.0-35.0); Mean Corpuscular Volume 90 fL (80-100); Monocytes # (Auto) 0.6 Thou/mm3 (0.0-0.8); Monocytes % (Auto) 6 % (0-12); Neutrophils # (Auto) 6.9 Thou/mm3 (1.8-7.7); Neutrophils % (Auto) 69 % (37-80); Nucleated Red Blood Cell # 0.00 Thou/mm3 (0.00-0.00); Nucleated Red Blood Cell % 0 /100 WBC (0); Platelet Count 301 Thou/mm3 (140-440); RDW Standard Deviation 43.4 fL (36.4-46.3); Red Blood Count 3.89 Miln/mm3 (4.00-5.20); White Blood Count 10.1 Thou/mm3 (3.6-11.0)
[2025-08-03 20:26] LABS: Collection Type, Urine Clean Catch
[2025-08-03 20:44] LABS: Anion Gap 10 (7-16); BUN/Creatinine Ratio 7 Ratio (12-20); Blood Urea Nitrogen < 5 mg/dL (9-23); Calcium 9.6 mg/dL (8.3-10.6); Carbon Dioxide 25.9 mMol/L (20.0-31.0); Chloride 104 mMol/L (98-107); Creatinine (Component) 0.7 mg/dL (0.6-1.3); Estimated Creatinine Clearance 90.4 mL/min (>60); Glucose 127 mg/dL (74-106); Osmolality,Calculated 278 (275-295); Potassium 3.6 mMol/L (3.4-5.1); Sodium 140 mMol/L (136-145); eGFR > 60 See Note
[2025-08-03 20:47] LABS: Bacteria,Urine Rare; Bilirubin,Urine Negative (Negative); Blood,Urine 3+ (Negative); Clarity,Urine Turbid (Clear/Hazy); Color,Urine Lt-Yellow (Lt Yel-Yel); Glucose, Urine Trace (Negative); Ketones,Urine Negative (Negative); Leukocyte Esterase,Urine Positive (Negative); Nitrite,Urine Negative (Negative); PH,Urine 7.5 (5.0-7.0); Protein,Urine Trace (Neg - Trace); RBC,Urine 7 /hpf (0-3); Specific Gravity,Urine 1.014 (1.001-1.035); Squamous Epithelial Cell,Urine 24 /hpf (0-5); Urobilinogen,Urine Negative mg/dL (0.0-1.0); WBC,Urine 10 /hpf (0-5)
== END 2025-08-03 22:03 | disposition home or self-care (01) ==
PROVIDERS: Nurse Practitioner Family; Emergency Provider Emergency Medicine; PCP Family Medicine
DX: O20.9 Hemorrhage in early pregnancy, unspecified (principal); Z3A.13 13 weeks gestation of pregnancy
CPT/HCPCS: 36415; 76801; 80048; 81001; 84702; 85025; 86900; 86901; 99283

== ENCOUNTER 2025-08-27 19:44 | Emergency (ER) | payer MEDICAID, SELFPAY ==
[2025-08-27 20:15] VITALS: BP 121/80; PULSE 85; RESP 18; TEMP 36.8; O2SAT 99
[2025-08-27 20:16] VITALS: BMI 23.8
--- NOTE | 2025-08-27 20:27 | XR_ITS ---
Examination: Retroperitoneal ultrasound, complete Technique: Multiple high resolution grayscale images of the retroperitoneum obtained, including kidneys and bladder. Exam date and time: August 27, 2025, 2036 hours INDICATIONS: Left flank pain beginning 2 days ago, hematuria onset today. FINDINGS: Right kidney 10.9 cm renal cortex 1.6 cm Left kidney 10.6 cm renal cortex 1.6 cm Mild renal scar formation. No hydronephrosis or renal calculi Contracted urinary bladder, no bladder mass or bladder calculi IMPRESSION: Mild bilateral renal scarring No renal calculi or hydronephrosis 9
--- NOTE | 2025-08-27 20:27 | XR_ITS ---
Examination: Complete OB ultrasound greater than 14 weeks Date and time of exam: August 27, 2025, 2040 hours INDICATIONS: Right flank pain beginning 2 days ago Findings: Viable intrauterine single fetus with single amniotic sac presentation breech Cardiac motion 143 bpm Placenta posterior grade 2 Umbilical cord insertion 3 vessel seen spine maternal right Cervix 3.6 cm Right ovary obscured by bowel gas Left ovary 2.5 cm arterial flow. Composite estimated gestational age based on BPD, head circumference, abdominal circumference, femur length is 18 weeks 0 days Estimated weight 226 g. Survey of intracranial anatomy, spinal anatomy, abdominal anatomy, four-chamber heart performed with no abnormalities identified. Impression: Viable intrauterine gestation in breech presentation.
--- NOTE | 2025-08-27 20:28 | EDNOTE_ITS ---
ED Female Urogenital RME/HPI General Chief complaint: General Adult/Misc Complain Stated complaint: LEFT FLANK PAIN, URINATING BLOOD Arrival date/time: 08/27/25 19:44 RME / HPI RME / HPI Narrative: See MDM for Dr. Sosa's HPI Documentation. Related Data Home Medications ?Medication ?Instructions ?Recorded ?Confirmed norgestimate 0.25 mg-ethinyl 1 tab PO QDAY 04/24/24 estradiol 0.035 mg tablet Previous Rx's ?Medication ?Instructions ?Recorded acetaminophen 500 mg capsule 500 mg PO Q6H PRN fever o r pain 04/25/24 #20 caps ibuprofen 800 mg tablet 800 mg PO Q8H PRN pain #20 t abs 04/25/24 metronidazole 500 mg tablet 500 mg PO Q12H #14 tabs ondansetron 4 mg disintegrating 4 mg PO TID PRN nausea and 08/27/25 tablet vomiting 30 days #10 tabs Allergies Allergy/AdvReac Type Severity Reaction Status Date / Time No Known Allergies Allergy Verified 08/27/25 19:45 Review of Systems Review of Systems Systems Reviewed: All systems reviewed, normal except as documented Past Medical History Past Medical History REPRODUCTIVE: Positive Previous Pregnancies (2) HEMATOLOGIC: Positive Blood Disorders and Anemia Family History FAMILY HISTORY: Positive Family Cardiac Disorders, Family Cancer (Prostate) and Family Surgery ED Exam Narrative Physical exam: See [facility] for Dr. Sosa's Physical Exam Documentation. Course Quality Measures none Orders Category Date Time Status US OB >= 14 weeks Fetus Stat Exams 08/27/25 20:27 Completed US renal BI Stat Exams 08/27/25 20:27 Completed Beta HCG,Quantitative Stat Lab 08/27/25 21:02 Completed Bilirubin,Direct Stat Lab 08/27/25 21:02 Completed CBC Stat Lab 08/27/25 21:02 Completed CMP [Comprehensive Metabolic Panel] Stat Lab 08/27/25 21:02 Completed Lipase Stat Lab 08/27/25 21:02 Completed Magnesium Stat Lab 08/27/25 21:02 Completed TSH [Thyroid Stimulating Hormone] Stat Lab 08/27/25 21:02 Completed UA, C/S IF [Urinalysis, C/S if Indicated] Stat Lab 08/27/25 20:31 Completed POTASSIUM CHL 10% Liq 15 ML Med 08/27/25 22:20 Discontinued 40 meq PO X1 ONE Vital Signs Vital signs: Vital Signs Temperature 98.2 F 08/27/25 20:15 Pulse Rate 85 08/27/25 20:15 Respiratory Rate 18 08/27/25 20:15 Blood Pressure 121/80 08/27/25 20:15 Pulse Oximetry (%) 99 08/27/25 20:15 Oxygen Delivery Method Room Air 08/27/25 20:15 Urogenital - Female MDM Narrative MDM Narrative:: This section includes all my notes and documentations, including HPI, PE, and ED course. Jose Sosa MD HPI: 35 y/o 18 1/7 week female presents with left flank pain and blood in the urine. Baby is moving well. No vaginal bleeding. No other complaints. ROS: All negative except as documented in HPI. Physical Exam: General: Alert and oriented. No acute distress when remaining still. Eyes: Conjunctivae and lids clear. ENT: No nasal congestion. Neck: Supple. Heart: RRR. Lungs: No respiratory distress. Good air movement. No rhonchi, wheezing, rales. Abdomen: Soft and nontender. Normal bowel sounds. No distension. No rebound or guarding. Back: No CVA tenderness. Skin: Warm and dry. Neuro: Alert and oriented X 3. I reviewed all diagnostic test results: My review of the Renal US report is NAD. My review of the US report is IUP. Blood tests remarkable for K 3.2. UA remarkable for leukocyte esterase, 6 RBC, 15 WBC, and bacteria. At this point, diagnoses include: UTI Hypokalemia Treatment here included: Alexia KCl 40 meq Recommended a trial of outpatient treatment. Based on my best medical judgment, made decision no further evaluation or treatment indicated at this time. Patient understands and agrees to the discharge instructions customized and printed, see below. Discharge instructions from Dr. Sosa: 1. After evaluation, you have UTI (see attached handout). There is no kidney infection or kidney stone or blood poisoning. 2. Take cefdinir to kill the germs causing the infection. 3. For good hydration, increase oral fluid and maintain clear urine. If dark or yellow, increase oral fluid. Zofran for nausea/vomiting. 4. Your potassium level was low. Increase food rich in potassium, such as eating a banana daily. 5. See a private doctor on 08/30/25 if not completely better. 6. Seek immediate medical care with worsening, fever, or with any concerns. Jose Sosa MD Patient data External records reviewed:: [facility] previous records (Reviewed prior ED records from 08/03/25. Patient was seen for .) Clinical information provided by:: patient Social determinants that could affect healthcare access:: none Patient has the following chronic illnesses:: Anemia How is presenting disease/condition affected by chronic disease/condition?: uneffected by Evaluation data The following diagnostics were reviewed and interpreted by me:: lab results and radiology exam(s) Lab and/or radiology exams considered but not ordered:: None Interpretation Summary: I reviewed all diagnostic test results: My review of the Renal US report is NAD. My review of the US report is IUP. Blood tests remarkable for K 3.2. UA remarkable for leukocyte esterase, 6 RBC, 15 WBC, and bacteria. Medications / Prescriptions Medications or Prescriptions considered but not ordered:: None Medication administrations:: Medication Administration History Discontinued Medications Potassium Chloride (Potassium Chloride 10% 20 Meq/15 Ml Udc) 40 meq PO X1 ONE Stop: 08/27/25 22:21 Last Admin: 08/27/25 22:34 Dose: 40 meq Documented By: Treatment here included: Alexia KCl 40 meq Consultations Consultation(s) initiated? (list below): No Diagnosis Urogenital Female Differential Diagnosis: urinary tract infection, cervicitis, vaginitis, cystitis and other (Pyelonephritis, Renal calculi) Most likely diagnosis given after review of the tests above:: UTI Admission Indicated Admission indicated?: not indicated Explain why admission is indicated or not indicated:: With no condition needing emergent intervention, there was no indication for admission. Admission Request Was there a request for admission?: No Disposition Plan Disposition Plan: Discharge Discharge Attestation Discharge Attestation: The patient and all family members were given an opportunity to ask questions and understood the discharge instructions. Discharge instructions specifically effects, indications for sooner follow up or return to the emergency department, and the expected course of current diagnosis. Patient condition: Stable Discharge Plan Plan Patient Disposition: HOME (Self Care) Prescriptions/Referrals Prescriptions/Med Rec: New ondansetron 4 mg tablet,disintegrating 4 mg PO TID PRN (Reason: nausea and vomiting) 30 Days Qty: 10 0RF No Action norgestimate-ethinyl estradiol 0.25-35 mg-mcg Tablet 1 tab PO QDAY acetaminophen 500 mg capsule 500 mg PO Q6H PRN (Reason: fever or pain) Qty: 20 0RF ibuprofen 800 mg tablet 800 mg PO Q8H PRN (Reason: pain) Qty: 20 0RF metronidazole 500 mg tablet 500 mg PO Q12H Qty: 14 0RF Referrals: Cristopher Emaneul MD [Primary Care Provider, Family Practice] - In 1 week Problem List Clinical Impression: UTI (urinary tract infection) Patient/Caregiver Discharge Instructions Discharge Activity: activity as tolerated Education Materials: ED CYSTITIS Female Adult Additional Instructions: Discharge instructions from Dr. Sosa: 1. After evaluation, you have UTI (see attached handout). There is no kidney infection or kidney stone or blood poisoning. 2. Take cefdinir to kill the germs causing the infection. 3. For good hydration, increase oral fluid and maintain clear urine. If dark or yellow, increase oral fluid. Zofran for nausea/vomiting. 4. Your potassium level was low. Increase food rich in potassium, such as eating a banana daily. 5. See a private doctor on 08/30/25 if not completely better. 6. Seek immediate medical care with worsening, fever, or with any concerns. Print Language: Arabic Stand Alone Forms: Maryse Award Info., Patient Portal Info Letter
[2025-08-27 20:54] LABS: Collection Type, Urine Clean Catch
[2025-08-27 21:03] LABS: Bacteria,Urine Rare; Bilirubin,Urine Negative (Negative); Blood,Urine Negative (Negative); Clarity,Urine Turbid (Clear/Hazy); Culture Indicated,Urine Contaminated; Glucose, Urine Negative (Negative); Ketones,Urine 2+ (Negative); Leukocyte Esterase,Urine Positive (Negative); Nitrite,Urine Negative (Negative); PH,Urine 6.0 (5.0-7.0); Protein,Urine Trace (Neg - Trace); RBC,Urine 6 /hpf (0-3); Specific Gravity,Urine 1.023 (1.001-1.035); Squamous Epithelial Cell,Urine 19 /hpf (0-5); Urobilinogen,Urine Negative mg/dL (0.0-1.0); WBC,Urine 15 /hpf (0-5)
[2025-08-27 21:04] LABS: Color,Urine Orange (Lt Yel-Yel)
[2025-08-27 21:12] LABS: Basophils # (Auto) 0.0 Thou/mm3 (0.0-0.2); Basophils % (Auto) 0 % (0-2.5); Eosinophils # (Auto) 0.1 Thou/mm3 (0.0-0.5); Eosinophils % (Auto) 1 % (0-10); Hematocrit 33.7 % (36.0-46.0); Hemoglobin 11.5 g/dL (12.0-16.0); Immature Granulocytes Auto 0.08 Thou/mm3 (0.00-0.00); Lymphocytes # (Auto) 2.2 Thou/mm3 (1.0-4.8); Lymphocytes % (Auto) 18 % (10-50); Mean Corpuscular HGB Conc 34.1 g/dl (31.0-37.0); Mean Corpuscular Hemoglobin 30.2 pg (25.0-35.0); Mean Corpuscular Volume 89 fL (80-100); Monocytes # (Auto) 0.6 Thou/mm3 (0.0-0.8); Monocytes % (Auto) 5 % (0-12); Neutrophils # (Auto) 9.2 Thou/mm3 (1.8-7.7); Neutrophils % (Auto) 76 % (37-80); Nucleated Red Blood Cell # 0.00 Thou/mm3 (0.00-0.00); Nucleated Red Blood Cell % 0 /100 WBC (0); Platelet Count 284 Thou/mm3 (140-440); RDW Standard Deviation 42.5 fL (36.4-46.3); Red Blood Count 3.81 Miln/mm3 (4.00-5.20); White Blood Count 12.2 Thou/mm3 (3.6-11.0)
[2025-08-27 21:53] LABS: Alanine Aminotransferase 38 U/L (10-49); Albumin, Serum 4.1 gm/dL (3.5-5.0); Albumin/Globulin Ratio 1.3 (1.2-2.2); Alkaline Phosphatase 65 U/L (46-116); Anion Gap 11 (7-16); Aspartate Amino Transferase 31 U/L (0-34); BUN/Creatinine Ratio 8 Ratio (12-20); Bilirubin,Direct < 0.1 mg/dL (0.0-0.3); Bilirubin,Total 0.3 mg/dL (0.3-1.2); Blood Urea Nitrogen < 5 mg/dL (9-23); Calcium 9.0 mg/dL (8.3-10.6); Calcium (Corrected) 9.0 mg/dL (8.5-10.1); Carbon Dioxide 25.1 mMol/L (20.0-31.0); Chloride 106 mMol/L (98-107); Creatinine (Component) 0.6 mg/dL (0.6-1.3); Estimated Creatinine Clearance 105.5 mL/min (>60); Globulin 3.2 gm/dL (2.3-3.5); Glucose 95 mg/dL (74-106); Lipase 49 U/L (12-53); Magnesium 1.8 mg/dL (1.6-2.6); Osmolality,Calculated 280 (275-295); Potassium 3.2 mMol/L (3.4-5.1); Sodium 142 mMol/L (136-145); Thyroid Stimulating Hormone 1.92 uIU/mL (0.55-4.78); Total Protein 7.3 gm/dL (5.7-8.2); eGFR > 60 See Note
[2025-08-27 22:16] LABS: Beta HCG,Quantitative 32986 mIU/mL (<5.0)
[2025-08-27] MEDS: POTASSIUM CHLORIDE 10% 20 MEQ/15 ML UDC 40 MEQ PO (22:34)
== END 2025-08-27 22:37 | disposition home or self-care (01) ==
PROVIDERS: Emergency Provider Emergency Medicine; PCP Family Medicine
DX: O23.42 Unspecified infection of urinary tract in pregnancy, second trimester (principal); N39.0 Urinary tract infection, site not specified; Z3A.18 18 weeks gestation of pregnancy
CPT/HCPCS: 36415; 76770; 76805; 80053; 81001; 82248; 83690; 83735; 84443; 84702; 85025; 99283; A9270